=== PATIENT | female | born 1970 | race African-American/Black ===

== ENCOUNTER 2020-04-13 17:37 | Emergency (ER) | payer BC ==
--- NOTE | 2020-04-13 20:08 | RAD ---
LEFT ELBOW 4 VIEWS: Date: 04/13/2020 HISTORY: Elbow pain status post fall. FINDINGS: There is a small avulsion from the ulnar edge of the coronoid process. This appears to probably be ac moises. I do not see any joint effusion. Radial head and radiocapitellar joints are normal. IMPRESSION: Small bony avulsion from the coronoid process. POS: OFF
--- NOTE | 2020-04-13 20:13 | RAD ---
LEFT WRIST THREE VIEWS: 04/13/20 HISTORY: Fall, left wrist pain. FINDINGS/IMPRESSION: There is a bony density adjacent to the base of the first metacarpal which appears well corticated an d is most likely due to degenerative change and less likely acute fracture. No definite acute fractur e or dislocation is identified. If symptoms do not improve a follow-up exam should be obtained in 7-10 days. POS: [facility]
== END 2020-04-13 19:33 | disposition home or self-care (01) ==
LOC: ERS 17:37
DX: S52.042A Displaced fracture of coronoid process of left ulna, initial encounter for closed fracture (principal); R03.0 Elevated blood-pressure reading, without diagnosis of hypertension; D64.9 Anemia, unspecified; F41.9 Anxiety disorder, unspecified; F42.9 Obsessive-compulsive disorder, unspecified; Z79.899 Other long term (current) drug therapy; W17.89XA Other fall from one level to another, initial encounter; Y93.E8 Activity, other personal hygiene

== ENCOUNTER 2021-05-30 11:27 | Emergency (ER) | payer BC ==
[2021-05-30] MEDS ORDERED: Doxycycline 100 MG CAP PO SCH (14:00)
[2021-05-30 22:06] LABS: SARS-CoV-2 PCR by NAA Not Detected (NotDetected)
== END 2021-05-30 14:02 | disposition home or self-care (01) ==
LOC: ERS 11:27
DX: J18.9 Pneumonia, unspecified organism (principal); G43.909 Migraine, unspecified, not intractable, without status migrainosus; D64.9 Anemia, unspecified; Z20.822 Contact with and (suspected) exposure to COVID-19
CPT/HCPCS: 71045; 87804; U0003; U0005

== ENCOUNTER 2023-04-04 13:01 | Outpatient (CLI) | payer OTHER | END 2023-04-04 13:02 | disposition home or self-care (01) | LOC: BICRAD 13:01 | PROVIDERS: ATTEND Family Medicine | DX: M25.561 Pain in right knee (principal) ==

== ENCOUNTER 2024-07-30 11:12 | Outpatient (CLI) | payer OTHER | END 2024-07-30 11:13 | disposition home or self-care (01) | LOC: BICMAMMO 11:12 | PROVIDERS: ATTEND Nurse Practitioner Family | DX: Z12.31 Encounter for screening mammogram for malignant neoplasm of breast (principal) | CPT/HCPCS: 77063; 77067 ==